=== PATIENT | female | born 1955 | race Caucasian/White ===

== ENCOUNTER 2018-04-30 03:32 | Outpatient (CLI) | payer SELFPAY ==
[~2018-04-30 03:32] MED LIST: DIPH-423 PO; ESTR1PAT7 TD; MULT-1085 PO; ONDA4TAB6 PO; POLY17PO10 PO
[2018-04-30 10:11] LABS: HEMOGLOBIN A1C 5.6 % (4.5-6.2)
[2018-04-30 12:12] LABS: CHOL/HDL RATIO 2.89 (0.00-4.99)
== END 2018-04-30 23:59 | disposition home or self-care (01) ==
LOC: HW HEART 03:32
DX: Z13.6 Encounter for screening for cardiovascular disorders (principal)
CPT/HCPCS: 36415

== ENCOUNTER 2025-03-07 11:20 | Emergency (ER) | payer OTHER, SELFPAY ==
[~2025-03-07] VITALS: Ht 180.3 cm; Wt 86.0 kg
[2025-03-07 11:26] VITALS: TEMP 97.8
[2025-03-07 11:48] LABS: MEAN PLATELET VOLUME 8.9 FL (7.4-10.4); RED CELL DISTRIBUTION WIDTH 13.2 % (11.5-14.5)
[2025-03-07 11:49] LABS: LEUKOCYTE ESTERASE ,URINE NEGATIVE (Neg); NITRITES, URINE NEGATIVE (Neg); OCCULT BLOOD,URINE NEGATIVE (Neg)
[2025-03-07 11:50] LABS: UA COLLECTION TYPE CLN CATCH MIDSTREAM
[2025-03-07 12:06] LABS: CREATININE 0.69 MG/DL (0.40-0.90); TOTAL CARBON DIOXIDE 28.9 MMOL/L (24-32); eCRCL 88 ML/MIN; eGFR 85 ML/MIN
--- NOTE | 2025-03-07 13:53 | Physician Documentation ---
History of Present Illness Chief Complaint: Abdominal Pain Stated Complaint: ABD PAIN Time Seen by MD: 13:51 OK to notify your PCP?: Yes Primary Medical Doctor: DR. KONG Source: patient, police, RN/MD, RN notes reviewed, old records Mode of Arrival: POV Exam Limitations: no limitations HPI 69-year-old female reports to the ER with chief symptoms of stomach issues. She notes that the last three days she has been getting pain in her back. Last night pain was worse after dinner. She feels uncomfortable. She feels super bloated, gassy, nauseated, shoulder pain, back pain, headachy, tired. She can not turn onto her side. She notes multiple attacks recently. She rates her pain 10. Medication Reconciliation Allergies: Coded Allergies: Sulfa (Sulfonamide Antibiotics) (Verified Allergy, Unknown, 03/07/25) Scheduled Estradiol (Vivelle-Dot), 1 PATCH TD WE, PAL[place]INO, (Reported) Metoclopramide Hcl* (Reglan*), 1 TAB PO Q12H Multivitamin (Multi Vitamin Daily), 1 EACH PO DAILY, (Reported) Polyethylene Glycol 3350* (Miralax*), 1 PKT PO DAILY, (Reported) Scheduled PRN Diphenhydramine Hcl (Benadryl), 25-50 MG PO Q6H PRN ITCHING PRN for allergic reaction Ondansetron Hcl (Zofran), 1 TAB PO Q6H PRN for nausea Past Medical History Past Medical History: No Pertinent History Past Surgical History: no surgical history Other Past Family History: Father- stroke, mother-hypothyrodism Alcohol Use: Occasionally Drug Use: none Lives In: Home Review of Systems All Other Systems at this time: Reviewed and Negative ROS As stated above in the HPI, otherwise all systems are reviewed and negative. Physical Exam Vital Signs: RN Vital Signs have been reviewed: Yes, Temperature: 97.8, Source: Temporal, Heart Rate: 70, Respiratory Rate: 18, BP: 140/74, Pulse Oximetry: 97, Weight: 86.000 Oxygen Flow Rate: 0 Physical Exam General: The patient is well developed, well nourished, nontoxic appearing and is in no acute distress. Skin: [place], warm and dry with no rashes. HEENT: Head was normocephalic and atraumatic. Eyes - pupils equal, round, reactive to light and accommodation. Extraocular movements were intact. Conjunctivae were nonicteric. The mouth and oropharynx were clear with moist mucous membranes. There were no pharyngeal exudates or erythema. Neck: Supple and nontender. There was no jugular venous distention, lymphadenopathy, thyromegaly or masses. Chest: Clear to auscultation bilaterally without wheezes, rales or rhonchi. No accessory muscle use. No dullness to percussion. Heart: Rate regular and rhythmic. S1, S2. No murmurs. Palpation of the chest wall was normal. No rubs or thrills. Abdomen: Mild epigastric tenderness, not nondistended. Slight increased bowel sounds. No guarding or rebound. No hepatosplenomegaly or palpable masses. Extremities: No cyanosis, clubbing or edema. The patient moves all extremities. Pulses were equal and symmetric. Neurologic: Motor systems are grossly intact. Psychologic: The patient was oriented to person, place and time. The patient demonstrated appropriate judgement and insight. Procedures Additional Procedures Additional Procedures: Other (Rectal exam) Additional Procedure Note Rectal exam: No masses Small external hemorrhoid at 3 o'clock position. No fissures. No masses. No stools. Coag-negative. Progress Results/Orders Reviewed/noted all lab results: Yes Results/Orders Completed Orders - JOSEPH VALENTINE MD Urinalysis, Cult If Indicated (03/07/25 11:29) Cbc/Diff (03/07/25 11:29) BMP (03/07/25 11:29) Lipase (03/07/25 11:29) CMP (03/07/25 11:29) Vital Signs 03/07/25 03/07/25 11:26 12:40 Temp 97.8 Pulse 72 70 Resp 18 18 B/P (MAP) 159/71 140/74 (96) Pulse Ox 98 97 O2 Flow Rate 0 0 Laboratory Tests Test 03/07/25 11:39 White Blood Count 5.6 Red Blood Count 4.56 Hemoglobin 14.5 Hematocrit 44.2 Mean Corpuscular Volume 96.8 Mean Corpuscular Hemoglobin 31.7 H Mean Corpuscular Hemoglobin Concent 32.8 L Red Cell Distribution Width 13.2 Platelet Count 286 Mean Platelet Volume 8.9 Neutrophils (%) (Auto) 47.0 Lymphocytes (%) (Auto) 36.6 Monocytes (%) (Auto) 10.9 Eosinophils (%) (Auto) 4.4 Basophils (%) (Auto) 1.1 H Neutrophils # (Auto) 2.6 Lymphocytes # (Auto) 2.0 Monocytes # (Auto) 0.6 Eosinophils # (Auto) 0.2 Basophils # (Auto) 0.1 CBC Comment Urine Specimen Description Cln catch midstream Urine Color Yellow Urine Clarity Clear Urine pH 5.5 Urine Specific [place] 1.025 Urine Protein Negative Urine Glucose (UA) Negative Urine Ketones Negative Urine Occult Blood Negative Urine Nitrite Negative Urine Bilirubin Negative Urine Urobilinogen 0.2 Urine Leukocyte Esterase Negative Urine Culture Indicated Not ind Volume Urine Centrifuged 10 ml Urine Comment Sodium Level 140 Potassium Level 3.7 Chloride Level 105 Carbon Dioxide Level 28.9 Anion Gap 6 L Blood Urea Nitrogen 16 Creatinine 0.69 Estimated GFR/1.73 m2 85 BUN/Creatinine Ratio 23.2 H Glucose Level 98 Calcium Level 8.9 Total Bilirubin 0.5 Aspartate Amino Transf (AST/SGOT) 18 Alanine Aminotransferase (ALT/SGPT) 30 Alkaline Phosphatase 89 Total Protein 7.5 Albumin 3.6 Globulin 3.9 Albumin/Globulin Ratio 0.9 L Lipase 35 Chemistry Comments EKG/XRAY/CT/US/VASC/MRI CT : Interpreted By: radiologist CT: abdomen/pelvis Ultrasound : Ultrasound of: abdomen Impression [address], [place], [place] - [address] CAT SCAN Patient: REUBEN BARRAZA Medical Record: [id number] [facility] : 1955, Age: 69 Sex: Female Location: ER Patient Status: REG ER Service Date/Time: 03/07/251409 Ordering Physician: JOSEPH VALENTINE MD Exam: CT ABDOMEN PELVIS CLINICAL HISTORY: ABD PAIN TECHNIQUE: CT of the abdomen and pelvis was performed with IV contrast. This exam was performed according to our departmental dose optimization program. Up-to-date CT equipment and radiation dose reduction techniques are utilized as appropriate. CTDI 24 DLP 1271 COMPARISON: None FINDINGS: Abdomen/Pelvis: The spleen, pancreas, adrenal glands, gallbladder, kidneys, and bladder are unremarkable. The uterus is absent. There is a right inferior hepatic lobe cyst. A subcentimeter hypodense right hepatic lobe lesion is too small to adequately characterize. There is a 9 mm enhancing structure of the right hepatic lobe, best seen on image 22 series 2. The abdominal aorta is normal in course and caliber. There are mild atherosclerotic calcifications. There is no free intraperitoneal air or fluid. There is no enlarged abdominal or pelvic lymph node. There is no bowel wall thickening or dilatation. Other: The imaged lower thorax demonstrates bands of bilateral lower lung atelectasis and/or scar. No acute osseous abnormality is evident. IMPRESSION: No acute CT abnormality of the abdomen / pelvis. 9 mm enhancing structure within the right liver lobe, favor small vascular shunt. If definitive assessment is warranted, nonemergent liver MRI with and without IV contrast is recommended. Electronically Signed by:NARAYAN MENENDEZ MD Date & Time: 03/07/251450 Dictated by: NARAYAN MENENDEZ MD Dictation date and time: 03/07/251450 Primary Care Provider: NO PRIMARY CARE PROVIDER cc: JOSEPH VALENTINE MD ~ Vascular : Impression ULTRASOUND Patient: REUBEN BARRAZA Medical Record: [id number] [facility] : 1955, Age: 69 Sex: Female Location: ER Patient Status: [facility] ER Service Date/Time: 03/07/251402 Ordering Physician: JOSEPH VALENTINE MD Exam: ULTRASOUND OF ABDOMEN INDICATION: ruq epigastric pain TECHNIQUE: Multiple real-time sonographic images were obtained of the right upper quadrant. COMPARISON: CT CT ABDOMEN PELVIS W/ IV CONTRAST on DOS: 03/07/25 FINDINGS: The liver demonstrates homogeneous echotexture without focal mass lesions. The liver measures 16 cm. Right hepatic lobe cyst measures 1.0 cm. There is no intrahepatic or extrahepatic ductal dilatation. The common duct measures 0.4 cm. The gallbladder is without evidence of stone or sludge. The gallbladder wall measures 0.3 cm and is within normal limits. The right kidney measures 8.9 cm. The right kidney is normal in contour, size, and shape. The echogenicity is normal. There is no hydronephrosis. The pancreas is not well visualized due to overlying bowel gas. IMPRESSION: No sonographic evidence of gallstones or acute cholecystitis. Electronically Signed by:MAX FINNEY MD Date & Time: 03/07/251552 Dictated by: MAX FINNEY MD Dictation date and time: 03/07/251552 Primary Care Provider: NO PRIMARY CARE PROVIDER cc: JOSEPH VALENTINE MD ~ Medical Decision Making Additional information obtaine: old records Departure Disposition: HOME / SELF CARE / HOMELESS Impression: Primary Impression: Abdominal pain Additional Impression: Hiatal hernia Condition: Stable Discharge Instructions: Abdominal Pain, Women Referrals: NO PRIMARY CARE PROVIDER (PCP) Prescriptions Metoclopramide Hcl* (Reglan*) 5 Mg Tablet 1 TAB PO Q12H for 15 Days, #30 TAB Prov: JOSEPH VALENTINE MD 03/07/25 Education Educated: Patient Educated regarding: diagnosis, treatment Additional Comment Additional Comment Patient offered admission but opted to go home. Signature Scribe Signature: Scribed for Joseph Valentine MD by Mark Santiago . 03/07/25 14:05 Attestation: The note accurately reflects work and decisions made by me.Joseph Valentine MD 03/07/25 13:52 JOSEPH VALENTINE MD Mar 07, 2025 13:53 MARK VALENTINE Mar 07, 2025 14:05
[2025-03-07] MEDS ORDERED: iohexol 300mg/ml 100ml inj. ONE (14:08)
--- NOTE | 2025-03-07 14:53 | RADIOLOGY REPORT ---
CLINICAL HISTORY: ABD PAIN TECHNIQUE: CT of the abdomen and pelvis was performed with IV contrast. This exam was performed according to our departmental dose optimization program. Up-to-date CT equipment and radiation dose reduction techniques are utilized as appropriate. CTDI 24 DLP 1271 COMPARISON: None FINDINGS: Abdomen/Pelvis: The spleen, pancreas, adrenal glands, gallbladder, kidneys, and bladder are unremarkable. The uterus is absent. There is a right inferior hepatic lobe cyst. A subcentimeter hypodense right hepatic lobe lesion is too small to adequately characterize. There is a 9 mm enhancing structure of the right hepatic lobe, best seen on image 22 series 2. The abdominal aorta is normal in course and caliber. There are mild atherosclerotic calcifications. There is no free intraperitoneal air or fluid. There is no enlarged abdominal or pelvic lymph node. There is no bowel wall thickening or dilatation. Other: The imaged lower thorax demonstrates bands of bilateral lower lung atelectasis and/or scar. No acute osseous abnormality is evident. IMPRESSION: No acute CT abnormality of the abdomen / pelvis. 9 mm enhancing structure within the right liver lobe, favor small vascular shunt. If definitive assessment is warranted, nonemergent liver MRI with and without IV contrast is recommended.
--- NOTE | 2025-03-07 15:55 | RADIOLOGY REPORT ---
INDICATION: ruq epigastric pain TECHNIQUE: Multiple real-time sonographic images were obtained of the right upper quadrant. COMPARISON: CT CT ABDOMEN PELVIS W/ IV CONTRAST on DOS: 03/07/25 FINDINGS: The liver demonstrates homogeneous echotexture without focal mass lesions. The liver measures 16 cm. Right hepatic lobe cyst measures 1.0 cm. There is no intrahepatic or extrahepatic ductal dilatation. The common duct measures 0.4 cm. The gallbladder is without evidence of stone or sludge. The gallbladder wall measures 0.3 cm and is within normal limits. The right kidney measures 8.9 cm. The right kidney is normal in contour, size, and shape. The echogenicity is normal. There is no hydronephrosis. The pancreas is not well visualized due to overlying bowel gas. IMPRESSION: No sonographic evidence of gallstones or acute cholecystitis.
[2025-03-07] MEDS ORDERED: METO5TAB98 PO (17:15)
[2025-03-07] MEDS: metoclopramide 5 mg/ml inj IV ONE (18:04)
[2025-03-07 18:40] VITALS: BP 122/74; PULSE 76; RESP 18; O2SAT 98
[2025-03-08 10:52] LABS: OCCULT BLOOD STOOL NEGATIVE (Neg)
== END 2025-03-07 18:06 | disposition home or self-care (01) ==
LOC: ER 11:21
DX: K44.9 Diaphragmatic hernia without obstruction or gangrene (principal); Z88.2 Allergy status to sulfonamides; Z79.899 Other long term (current) drug therapy; Z72.89 Other problems related to lifestyle
CPT/HCPCS: 36415; 74177; 76700; 80053; 81003; 82272; 83690; 85025; 96374; 99285; J2765; J7030; Q9967